=== PATIENT | male | born 1995 | race American Indian/Alaskan Native ===

== ENCOUNTER 2021-09-01 14:49 | Emergency (ER) | payer OTHER ==
[2021-09-01] MEDS ORDERED: HYDROmorphone 1 MG/ML Syringe IVPUSH ONE (15:05)
[2021-09-01] MEDS ORDERED: Sodium Chloride 0.9% 1,000 ML IV ONE (15:05)
[2021-09-01] MEDS ORDERED: Propofol 200 MG/20 ML SDV ONE (15:44)
[2021-09-01] MEDS ORDERED: Metoclopramide 10 MG/2 ML SDV ONE (15:45)
[2021-09-01] MEDS ORDERED: Lidocaine 1% 6 ML ONE (15:45)
[2021-09-01] MEDS ORDERED: Midazolam 1 MG/ML 2 ML SDV ONE (15:46)
[2021-09-01] MEDS ORDERED: fentaNYL 100 MCG/2 ML SDV ONE (15:46)
[2021-09-01] MEDS ORDERED: Ondansetron 4 MG/2 ML SDV ONE (16:03)
== END 2021-09-01 19:20 | disposition home or self-care (01) ==
LOC: JD.ED 14:49
DX: S82.851A Displaced trimalleolar fracture of right lower leg, initial encounter for closed fracture (principal); Z91.018 Allergy to other foods; W00.0XXA Fall on same level due to ice and snow, initial encounter
CPT/HCPCS: 27818; 73600; 96374; 99284; J1170; J2250; J2405; J2704; J2765; J3010; J7030; 01462; 99140